=== PATIENT | female | born 2005 | race Caucasian/White ===

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

== ENCOUNTER 2024-02-23 15:39 | Emergency (ER) | payer SELFPAY ==
[2024-02-23] MEDS: Sodium Chloride 0.9% 1,000 ML IV ONE (15:57)
[2024-02-23 16:03] LABS: BASOPHILS ABSOLUTE AUTO 0.01 K/uL (0.00-0.30); BASOPHILS PERCENT AUTO 0.3 % (0.0-1.0); EOSINOPHILS ABSOLUTE AUTO 0.02 K/uL (0.00-0.70); EOSINOPHILS PERCENT AUTO 0.6 % (0.0-5.0); HEMATOCRIT 35.8 % (37.0-47.0); HEMOGLOBIN 12.6 g/dL (12.0-16.0); LYMPHOCYTES ABSOLUTE AUTO 0.29 K/uL (2.00-8.80); LYMPHOCYTES PERCENT AUTO 8.1 % (50.0-65.0); MEAN CORPUSCULAR HEMOGLOBIN 31.3 pg (28.0-32.0); MEAN CORPUSCULAR HGB CONC 35.2 g/dL (32.0-36.0); MEAN CORPUSCULAR VOLUME 88.8 fL (83.0-99.0); MEAN PLATELET VOLUME 10.6 fL (9.4-12.3); MONOCYTES ABSOLUTE AUTO 0.39 K/uL (0.10-1.40); NEUTROPHILS ABSOLUTE AUTO 2.85 K/uL (1.50-8.50); PLATELET COUNT,PLT 155 K/uL (150-400); RED BLOOD CELL COUNT 4.03 M/uL (4.10-5.30); WHITE BLOOD CELL COUNT,WBC 3.56 K/uL (4.5-13.5)
[2024-02-23 16:18] LABS: APPEARANCE,URINE CLEAR; BILIRUBIN,URINE NEGATIVE (NEGATIVE); COLOR,URINE YELLOW; GLUCOSE,URINE NEGATIVE (NEGATIVE); KETONES,URINE 40 mg/dL (NEGATIVE); LEUKOCYTE ESTERASE,URINE NEGATIVE (NEGATIVE); NITRITE,URINE NEGATIVE (NEGATIVE); OCCULT BLOOD,URINE MODERATE (NEGATIVE); PROTEIN,URINE NEGATIVE (NEGATIVE); UROBILINOGEN,URINE 0.2 EU/dL (<2.0)
[2024-02-23 16:37] LABS: ALBUMIN 3.7 g/dL (3.4-5.0); BILIRUBIN TOTAL 0.3 mg/dL (0.2-1.0); CALCIUM 8.9 mg/dL (8.5-10.1); CARBON DIOXIDE,CO2 21.9 mmol/L (21.0-32.0); CREATININE 0.8 mg/dL (0.6-1.0); EST CRCL DRUG DOSING (CG) 69.82 mL/min; POTASSIUM,K 3.5 mmol/L (3.5-5.1); PROTEIN TOTAL,TP 7.4 g/dL (6.4-8.2)
[2024-02-23 16:39] LABS: CORONAVIRUS COVID-19 NAA POSITIVE (NEGATIVE); INFLUENZA A NAA NEGATIVE (NEGATIVE); INFLUENZA B NAA NEGATIVE (NEGATIVE); RESPIRATORY SYNCYTIAL VIR NAA NEGATIVE (NEGATIVE)
[2024-02-23 16:44] LABS: BACTERIA,URINE FEW (NEGATIVE); EPITHELIAL CELLS,URINE FEW (NONE-FEW); WBC,URINE 0-1 (0-5/HPF)
[2024-02-23] MEDS: Acetaminophen 500 MG Tab PO ONE (16:47)
[2024-02-23 17:37] VITALS: BP 119/67; PULSE 81
== END 2024-02-23 17:36 | disposition home or self-care (01) ==
LOC: MW.ED 15:39
DX: U07.1 COVID-19 (principal); Z75.8 Other problems related to medical facilities and other health care
CPT/HCPCS: 0241U; 36415; 80053; 81001; 81025; 85025; 96360; 99283; A9270; J7030

== ENCOUNTER 2024-10-25 19:42 | Emergency (ER) | payer SELFPAY ==
[2024-10-25 20:09] VITALS: BP 106/53; PULSE 70
[2024-10-25] MEDS: Ibuprofen 600 MG Tab PO ONE (20:51)
== END 2024-10-25 21:08 | disposition home or self-care (01) ==
LOC: MW.ED 19:42
DX: M25.532 Pain in left wrist (principal); Z75.3 Unavailability and inaccessibility of health-care facilities; Z88.8 Allergy status to other drugs, medicaments and biological substances; Z79.899 Other long term (current) drug therapy
CPT/HCPCS: 73110; 99283; A9270